=== PATIENT | male | born 1965 | race African-American/Black ===

== ENCOUNTER 2019-06-05 02:20 | Emergency (ER) | payer OTHER ==
[~2019-06-05] VITALS: Ht 177.8 cm; Wt 82.6 kg
[2019-06-05 02:21] VITALS: BP 164/92
[2019-06-05] MEDS ORDERED: GABA300C18 PO (02:59)
[2019-06-05] MEDS ORDERED: CYCL5TAB PO (02:59)
[2019-06-05] MEDS ORDERED: METH4TAB2 PO (02:59)
--- NOTE | 2019-06-05 02:59 | PHYS DOC ---
Past Medical History Past Medical History: No Pertinent History Past Surgical History: No Surgical History Alcohol Use: Heavy Drug Use: Marijuana Adult General Chief Complaint Chief Complaint: SHOULDER INJURY HPI HPI 53-year-old male presents to the emergency department with complaints of right arm numbness, tingling, burning. Patient states he's been ongoing for approximately one month he was seen by primary care physician as an outpatient diagnosed with radiculopathy. Patient was started on gabapentin, naproxen, Motrin. He states things are not working and they continue to get worse. Describes his symptoms intermittently. Tonight he states pain was worse he was unable to sleep. Patient has underlying history of degenerative cervical changes. Imaging has been completed before. Review of Systems Review of Systems Constitutional: Denies fever or chills [] Respiratory: Denies cough or shortness of breath [] Cardiovascular: No additional information not addressed in HPI [] GI: Denies abdominal pain, nausea, vomiting, bloody stools or diarrhea [] Musculoskeletal: Denies back pain or joint pain [] Neurologic: Denies headache, numbness, tingling appreciated to right upper extremity intermittent All other systems were reviewed and found to be within normal limits, except as documented in this note. Current Medications Current Medications Current Medications Medications (Trade) Dose Ordered Sig/Alexa Start Time Stop Time Status Last Admin Dose Admin Dexamethasone Sodium Phosphate (Decadron) 4 mg 1X ONCE 06/05/19 03:00 06/05/19 03:01 UNV Ketorolac Tromethamine (Toradol Im) 60 mg 1X ONCE 06/05/19 03:00 06/05/19 03:01 UNV Allergies Allergies Allergies Coded Allergies Type Severity Reaction Last Updated Verified No Known Drug Allergies 11/26/14 No Physical Exam Physical Exam Constitutional: Well developed, well nourished, no acute distress, non-toxic appearance. [] Neck: Normal range of motion, no tenderness, supple, no stridor, pain appreciated to deltoid, no neck pain at this time[] Cardiovascular:Heart rate regular rhythm, no murmur [] Lungs & Thorax: Bilateral breath sounds clear to auscultation [] Back: No tenderness, no CVA tenderness. [] Extremities: No tenderness, no cyanosis, no edema. cervical radiculopathy pain appreciated to right upper ext [] Neurologic: Alert and oriented X 3, no focal deficits noted. [] Psychologic: Affect normal, judgement normal, mood normal. [] Current Patient Data Vital Signs Vital Signs Date Time Temp Pulse Resp B/P (MAP) Pulse Ox O2 Delivery O2 Flow Rate FiO2 06/05/19 02:21 97.9 94 18 164/92 (116) 96 Room Air 97.9 EKG EKG [] Radiology/Procedures Radiology/Procedures [] Course & Med Decision Making Course & Med Decision Making Pertinent Labs and Imaging studies reviewed. (See chart for details) []53-year-old male presents to the emergency department with complaints of right arm numbness, tingling, burning. Patient states he's been ongoing for approximately one month he was seen by primary care physician as an outpatient diagnosed with radiculopathy. Patient was started on gabapentin, naproxen, Motrin. He states things are not working and they continue to get worse. Describes his symptoms intermittently. Tonight he states pain was worse he was unable to sleep. Patient has underlying history of degenerative cervical changes. Imaging has been completed before. Toradol/decadron IM. Refill of gabapentin provided. Medrol dose shantel provided. Recommend follow up with PCP, patient needs MRI or pain management referral. Discussed discharge plans and return precautions. Dragon Disclaimer Dragon Disclaimer This electronic medical record was generated, in whole or in part, using a voice recognition dictation system. Departure Departure Impression: Primary Impression: Cervical radicular pain Disposition: 01 HOME, SELF-CARE Condition: STABLE Referrals: NO PCP (PCP) Patient Instructions: Cervical Radiculopathy, [id number] Additional Instructions: Recommend follow up as soon as possible - need further MRI Return to the ER with worsening symptoms, intractable pain, fever, altered mental status Tylenol/Motrin as needed for pain Flexeril rx provided take as directed Gabapentin rx provided take as directed Medrol dose shantel provided take as directed Scripts Cyclobenzaprine Hcl (CYCLOBENZAPRINE HCL) 5 Mg Tablet 1 TAB PO TID, #30 TAB Prov: NOMAN MCQUEEN MD 06/05/19 Gabapentin (GABAPENTIN) 300 Mg Capsule 300 MG PO TID for NEUROGENIC PAIN for 30 Days, #90 CAP Prov: NOMAN MCQUEEN MD 06/05/19 Methylprednisolone (MEDROL) 4 Mg Tab.ds.pk 1 PKG PO UD, #1 PKG Prov: NOMAN MCQUEEN MD 06/05/19 NOMAN MCQUEEN MD Jun 05, 2019 02:59
[2019-06-05] MEDS ORDERED: KETOROLAC 60 MG/2 ML VIAL. IM ONE (03:15)
[2019-06-05] MEDS ORDERED: DEXAMETHASONE SOD PHOS 4 MG/ML VIAL IM ONE (03:15)
== END 2019-06-05 03:10 | disposition home or self-care (01) ==
LOC: ER 02:20
DX: M54.12 Radiculopathy, cervical region (principal); R20.2 Paresthesia of skin; F10.20 Alcohol dependence, uncomplicated; Y90.9 Presence of alcohol in blood, level not specified
CPT/HCPCS: 96372; 99284; J1100; J1885

== ENCOUNTER 2019-06-17 14:25 | Inpatient (IN) | payer OTHER ==
[~2019-06-17] VITALS: Ht 177.8 cm; Wt 83.5 kg
[2019-06-17] VITALS (8 sets, daily range): BP systolic 131–154; BP diastolic 76–83
[~2019-06-17 14:25] MED LIST: CYCL5TAB PO; GABA300C18 PO; METH4TAB2 PO
[2019-06-17] MEDS ORDERED: FAMOTIDINE 20 MG/2 ML VIAL IVP ONE (15:00)
[2019-06-17] MEDS ORDERED: diphenhydrAMINE 50 MG/ML VIAL IVP ONE (15:00)
[2019-06-17] MEDS ORDERED: methylPREDNISolone SOD SUCC PF 125 MG/2 ML VIAL. IV ONE (15:00)
[2019-06-17 15:05] LABS: BASO # 0.1 x10^3/uL (0.0-0.2); BASO % 1 % (0-3); EOS # 0.1 x10^3/uL (0.0-0.7); EOS % 1 % (0-3); HEMATOCRIT 45.1 % (39.0-53.0); HEMOGLOBIN 15.6 g/dL (13.0-17.5); LYMPH # 3.2 x10^3/uL (1.0-4.8); LYMPH % 31 % (24-48); MEAN CORPUSCULAR HEMOGLOBIN 33 pg (25-35); MEAN CORPUSCULAR HGB CONC 35 g/dL (31-37); MEAN CORPUSCULAR VOLUME 96 fL (79-100); MONO # 0.7 x10^3/uL (0.0-1.1); MONO % 7 % (0-9); NEUT # 6.2 x10^3/uL (1.8-7.7); NEUT % 60 % (31-73); PLATELET COUNT 210 x10^3/uL (140-400); RED BLOOD COUNT 4.69 x10^6/uL (4.30-5.70); RED CELL DISTRIBUTION WIDTH 14.8 % (11.5-14.5); WHITE BLOOD COUNT 10.3 x10^3/uL (4.0-11.0)
[2019-06-17 15:16] LABS: CALCIUM 9.3 mg/dL (8.5-10.1); CREATININE 0.9 mg/dL (0.7-1.3); POTASSIUM 3.7 mmol/L (3.5-5.1)
[2019-06-17 15:22] LABS: ALBUMIN 4.1 g/dL (3.4-5.0); TOTAL BILIRUBIN 0.7 mg/dL (0.2-1.0); TOTAL PROTEIN 8.1 g/dL (6.4-8.2)
--- NOTE | 2019-06-17 15:32 | PHYS DOC ---
Past Medical History Past Medical History: Hypertension Past Surgical History: No Surgical History Alcohol Use: Heavy Drug Use: Marijuana Adult General Chief Complaint Chief Complaint: FACE PROBLEM HPI HPI 53-year-old male presents to the emergency department with facial swelling. Patient states he went to his primary care physician within the last week he was changed from hydrochlorothiazide to the donation pill of hydrochlorothiazide and lisinopril. She states after starting medications he had a little bit of dif ficulty swallowing and some cough however that subsequently resolved. He states he woke up yesterday morning with some swelling to the left side of his face and that subsequently resolved. Today he states he woke up this morning with significant swelling to his upper lip and face. He denies any shortness of breath or swelling of his tongue. He is able to talk in full sentences. Review of Systems Review of Systems Constitutional: Denies fever or chills [] Eyes: Denies change in visual acuity, redness, or eye pain [] HENT: Denies nasal congestion or sore throat [] Respiratory: Denies cough or shortness of breath [] Cardiovascular: No additional information not addressed in HPI [] GI: Denies abdominal pain, nausea, vomiting, bloody stools or diarrhea [] : Denies dysuria or hematuria [] Musculoskeletal: Denies back pain or joint pain [] Integument: Denies rash or skin lesions [] Neurologic: Denies headache, focal weakness or sensory changes [] Endocrine: Denies polyuria or polydipsia [] All other systems were reviewed and found to be within normal limits, except as documented in this note. Current Medications Current Medications Current Medications Medications (Trade) Dose Ordered Sig/Alexa Start Time Stop Time Status Last Admin Dose Admin Diphenhydramine HCl (Benadryl) 50 mg 1X ONCE 06/17/19 15:00 06/17/19 15:01 DC 06/17/19 15:08 50 MG Epinephrine HCl (Adrenalin) 0.3 mg 1X ONCE 06/17/19 15:45 06/17/19 15:46 DC 06/17/19 15:52 0.3 MG Famotidine (Pepcid Vial) 20 mg 1X ONCE 06/17/19 15:00 06/17/19 15:01 DC 06/17/19 15:08 20 MG Methylprednisolone Sodium Succinate (SOLU-Medrol 125MG VIAL) 125 mg 1X ONCE 06/17/19 15:00 06/17/19 15:01 DC 06/17/19 15:08 125 MG Allergies Allergies Allergies Coded Allergies Type Severity Reaction Last Updated Verified No Known Drug Allergies 11/26/14 No Physical Exam Physical Exam Constitutional: Well developed, well nourished, no acute distress HENT: Normocephalic, atraumatic, bilateral external ears normal, oropharynx moist, + angioedema to upper lip and face, no swelling of tongue, no oral exudates, nose normal. [] Eyes: PERRLA, EOMI, conjunctiva normal, no discharge. [] Neck: Normal range of motion, no tenderness, supple, no stridor. [] Cardiovascular:Heart rate regular rhythm, no murmur [] Lungs & Thorax: Bilateral breath sounds clear to auscultation [] Abdomen: Bowel sounds normal, soft, no tenderness, no masses, no pulsatile masses. [] Skin: Warm, dry, no erythema, no rash. [] Back: No tenderness, no CVA tenderness. [] Extremities: No tenderness, no edema. [] Neurologic: Alert and oriented X 3, no focal deficits noted. [] Psychologic: Affect normal, judgement normal, mood normal. [] Current Patient Data Vital Signs Vital Signs Date Time Temp Pulse Resp B/P (MAP) Pulse Ox O2 Delivery O2 Flow Rate FiO2 06/17/19 14:41 97.8 101 16 141/95 (110) 100 Room Air 97.8 Lab Values Laboratory Tests Test 06/17/19 14:45 White Blood Count 10.3 x10^3/uL (4.0-11.0) Red Blood Count 4.69 x10^6/uL (4.30-5.70) Hemoglobin 15.6 g/dL (13.0-17.5) Hematocrit 45.1 % (39.0-53.0) Mean Corpuscular Volume 96 fL (79-100) Mean Corpuscular Hemoglobin 33 pg (25-35) Mean Corpuscular Hemoglobin Concent 35 g/dL (31-37) Red Cell Distribution Width 14.8 % (11.5-14.5) H Platelet Count 210 x10^3/uL (140-400) Neutrophils (%) (Auto) 60 % (31-73) Lymphocytes (%) (Auto) 31 % (24-48) Monocytes (%) (Auto) 7 % (0-9) Eosinophils (%) (Auto) 1 % (0-3) Basophils (%) (Auto) 1 % (0-3) Neutrophils # (Auto) 6.2 x10^3/uL (1.8-7.7) Lymphocytes # (Auto) 3.2 x10^3/uL (1.0-4.8) Monocytes # (Auto) 0.7 x10^3/uL (0.0-1.1) Eosinophils # (Auto) 0.1 x10^3/uL (0.0-0.7) Basophils # (Auto) 0.1 x10^3/uL (0.0-0.2) Sodium Level 136 mmol/L (136-145) Potassium Level 3.7 mmol/L (3.5-5.1) Chloride Level 98 mmol/L (98-107) Carbon Dioxide Level 25 mmol/L (21-32) Anion Gap 13 (6-14) Blood Urea Nitrogen 11 mg/dL (8-26) Creatinine 0.9 mg/dL (0.7-1.3) Estimated GFR (Cockcroft-Gault) 106.0 BUN/Creatinine Ratio 12 (6-20) Glucose Level 89 mg/dL (70-99) Calcium Level 9.3 mg/dL (8.5-10.1) Total Bilirubin 0.7 mg/dL (0.2-1.0) Aspartate Amino Transferase (AST) 28 U/L (15-37) Alanine Aminotransferase (ALT) 41 U/L (16-63) Alkaline Phosphatase 105 U/L (46-116) Total Protein 8.1 g/dL (6.4-8.2) Albumin 4.1 g/dL (3.4-5.0) Albumin/Globulin Ratio 1.0 (1.0-1.7) Laboratory Tests 06/17/19 14:45 Laboratory Tests 06/17/19 14:45 EKG EKG [] Radiology/Procedures Radiology/Procedures [] Course & Med Decision Making Course & Med Decision Making Pertinent Labs and Imaging studies reviewed. (See chart for details) []53-year-old male presents to the emergency department with facial swelling. Patient states he went to his primary care physician within the last week he was changed from hydrochlorothiazide to the donation pill of hydrochlorothiazide and lisinopril. She states after starting medications he had a little bit of difficulty swallowing and some cough however that subsequently resolved. He states he woke up yesterday morning with some swelling to the left side of his face and that subsequently resolved. Today he states he woke up this morning with significant swelling to his upper lip and face. He denies any shortness of breath or swelling of his tongue. He is able to talk in full sentences. Labs reviewed, no acute process Patient received solumedrol, pepcid, benadryl, and epi IM O2 saturations 100%, no laryngeal edema appreciated Discussed admission with patient and Hospitalist. Dragon Disclaimer Dragon Disclaimer This electronic medical record was generated, in whole or in part, using a voice recognition dictation system. Departure Departure Impression: Primary Impression: Angioedema Disposition: ADMITTED INPATIENT Admitting Physician: ROHIT Condition: STABLE Referrals: GARY SANTIAGO PA-C (PCP) Problem Qualifiers Primary Impression: Angioedema Encounter type: initial encounter Qualified Codes: T78.3XXA - Angioneurotic edema, initial encounter NOMAN MCQUEEN MD Jun 17, 2019 15:32
[2019-06-17] MEDS ORDERED: EPINEPHrine 1 MG/ML VIAL IM ONE (15:45)
[2019-06-17] MEDS ORDERED: ONDANSETRON PF 4 MG/2 ML VIAL. IV PRN (16:30)
--- NOTE | 2019-06-17 19:53 | HP ---
ADMIT DATE: 06/17/2019 CHIEF COMPLAINT: Swollen lips. HISTORY OF PRESENT ILLNESS: The patient is a pleasant 53-year-old male who presented with swollen lips. He apparently was on hydrochlorothiazide and his doctor changed him over to a combination of a product that includes hydrochlorothiazide and lisinopril. Sure enough now he has angioedema. I discussed the case with the ER physician. We are going to admit the patient and give him routine allergic reaction protocol including steroids, Benadryl and Pepcid. PAST MEDICAL HISTORY: Hypertension and heavy alcohol use and marijuana use. ALLERGIES: None. FAMILY HISTORY: Hypertension. SOCIAL HISTORY: I think he is . His is here. He drinks heavily and smokes marijuana. MEDICATIONS: Reviewed, please refer to the MRAD. REVIEW OF SYSTEMS: GENERAL: No history of weight change, weakness or fevers. SKIN: No bruising, hair changes or rashes. EYES: No blurred, double or loss of vision. NOSE AND THROAT: No history of nosebleeds, hoarseness or sore throat. He complains of swollen lips. HEART: No history of palpitations, chest pain or shortness of breath on exertion. LUNGS: Denies cough, hemoptysis, wheezing or shortness of breath. GASTROINTESTINAL: Denies changes in appetite, nausea, vomiting, diarrhea or constipation. GENITOURINARY: No history of frequency, urgency, hesitancy or nocturia. NEUROLOGIC: Denies history of numbness, tingling, tremor or weakness. PSYCHIATRIC: No history of panic, anxiety or depression. ENDOCRINE: No history of heat or cold intolerance, polyuria or polydipsia. EXTREMITIES: Denies muscle weakness, joint pain, pain on walking or stiffness. PHYSICAL EXAMINATION: VITALS: Within normal limits and are stable. GENERAL: No apparent distress. Alert and oriented. HEENT: Head is normocephalic, atraumatic, pupils were equally round and reactive to light and accommodation. His lips are quite swollen. NECK: Supple, no JVD, no thyromegaly was noted. LUNGS: Clear to auscultation in all lung cloud without rhonchi or wheezing. HEART: RRR, S1, S2 present. Peripheral pulses intact, no obvious murmurs were noted. ABDOMEN: Soft, nontender. Positive bowel sounds no organomegaly, normal bowel sounds. EXTREMITIES: Without any cyanosis, clubbing, or edema. Pedal pulses intact, Homans sign is negative. NEUROLOGIC: Normal speech, normal tone. A & O x 3, moves all extremities, no obvious focal deficits. PSYCHIATRIC: Normal affect, normal mood. Stable. SKIN: No ulcerations or rashes, good skin turgor, no jaundice. VASCULAR: Good capillary refill, neurovascular bundle appears to be intact. LABORATORY DATA: His electrolytes are normal and hematology is normal. ASSESSMENT AND PLAN: Angioedema secondary to SHERICE inhibitors. The patient is being admitted. We will give him routine allergic reaction protocol including steroids, Benadryl and Pepcid. ICU monitoring. DVT prophylaxis. Continue other home meds. PROGNOSIS: Guarded. CANDI TAYLOR DO DR: LONNIE/maycol JOB#: [id number] / [id number]
--- NOTE | 2019-06-17 20:00 | NUR ---
Pt arrived on unit via wheelchair accompanied by ED RN. Pt able to ambulate from wheelchair to bed without difficulty. Pt oriented to unit policies including side rail, call light, smoking, and visitors. Pt's belongings with pt in room. POC discussed with pt, Dr. Rodríguez called and orders received to restart pt's home medications. will continue to monitor
[2019-06-17] MEDS ORDERED: NAPR-514 PO (20:17)
[2019-06-17] MEDS ORDERED: AMLO10TA8 PO (20:17)
[2019-06-17] MEDS ORDERED: LABETALOL 20 MG/4 ML DISP.SYRIN. IVP PRN (22:15)
[2019-06-17] MEDS ORDERED: HYDROcodone/APAP 5/325MG 1 TAB TABLET PO PRN (22:15)
[2019-06-18] VITALS (14 sets, daily range): BP systolic 116–153; BP diastolic 72–99
[2019-06-18] MEDS: CYCLOBENZAPRINE 10 MG TABLET. PO SCH ×4 (00:08→20:19)
[2019-06-18] MEDS: GABAPENTIN 300 MG CAPSULE. PO SCH ×4 (00:08→20:18)
[2019-06-18] MEDS: NAPROXEN 500 MG TABLET PO SCH ×3 (00:09→20:19)
[2019-06-18 06:09] LABS: BASO % 0 % (0-3); EOS % 0 % (0-3); HEMATOCRIT 42.8 % (39.0-53.0); HEMOGLOBIN 14.7 g/dL (13.0-17.5); LYMPH # 0.9 x10^3/uL (1.0-4.8); LYMPH % 13 % (24-48); MEAN CORPUSCULAR HEMOGLOBIN 33 pg (25-35); MEAN CORPUSCULAR HGB CONC 34 g/dL (31-37); MEAN CORPUSCULAR VOLUME 96 fL (79-100); MONO # 0.1 x10^3/uL (0.0-1.1); MONO % 2 % (0-9); NEUT # 5.8 x10^3/uL (1.8-7.7); NEUT % 85 % (31-73); PLATELET COUNT 201 x10^3/uL (140-400); RED BLOOD COUNT 4.45 x10^6/uL (4.30-5.70); WHITE BLOOD COUNT 6.9 x10^3/uL (4.0-11.0)
[2019-06-18 06:29] LABS: CALCIUM 9.3 mg/dL (8.5-10.1); CREATININE 0.9 mg/dL (0.7-1.3); GFR 105.6; POTASSIUM 4.2 mmol/L (3.5-5.1); TOTAL BILIRUBIN 0.7 mg/dL (0.2-1.0)
[2019-06-18] MEDS: amLODIPine BESYLATE 10 MG TABLET PO SCH (08:09)
[2019-06-18] MEDS ORDERED: FLU VAX QS 2019-20 (36MOS+)/PF 0.5 ML SYRINGE. VAX IM ONE (09:00)
--- NOTE | 2019-06-18 10:30 | NUR ---
SS following for discharge planning. SS reviewed pt chart. Pt is from home and is currently on room air. SS will continue to follow for discharge planning.
--- NOTE | 2019-06-18 11:26 | PDOC ---
[facility] PROGRESS NOTE Chief Complaint Chief Complaint Angioedema secondary to SHERICE inhibitors Right hand tremor vs paraesthesia History of Present Illness History of Present Illness Pt was seen and examined in the ICU. Pt reports he is doing better today, he reports his facial is improved compared to yesterday but still present and he continues to be distressed in regards to the cosmetic appearance of his face due to the swelling. He also is concerned about a right hand tremor. Vitals/I&O Vitals/I&O: Vital Signs Date Time Temp Pulse Resp B/P (MAP) Pulse Ox O2 Delivery O2 Flow Rate FiO2 06/18/19 10:00 77 16 140/72 (94) 99 Room Air 06/18/19 08:00 98.8 98.8 I & O 06/17/19 06/17/19 06/18/19 15:00 23:00 07:00 Intake Total 700 ml Balance 700 ml Physical Exam General: Alert, Oriented X3, Cooperative Heart: Regular rate Lungs: Clear Abdomen: Normal bowel sounds, Soft Extremities: No clubbing, No cyanosis Skin: No rashes, No breakdown, Other (Diffuse facial swelling; no difficulties swallowing or breathing.) Labs Labs: Laboratory Tests Test 06/17/19 14:45 06/18/19 05:20 White Blood Count 10.3 x10^3/uL (4.0-11.0) 6.9 x10^3/uL (4.0-11.0) Red Blood Count 4.69 x10^6/uL (4.30-5.70) 4.45 x10^6/uL (4.30-5.70) Hemoglobin 15.6 g/dL (13.0-17.5) 14.7 g/dL (13.0-17.5) Hematocrit 45.1 % (39.0-53.0) 42.8 % (39.0-53.0) Mean Corpuscular Volume 96 fL (79-100) 96 fL (79-100) Mean Corpuscular Hemoglobin 33 pg (25-35) 33 pg (25-35) Mean Corpuscular Hemoglobin Concent 35 g/dL (31-37) 34 g/dL (31-37) Red Cell Distribution Width 14.8 % (11.5-14.5) 15.0 % (11.5-14.5) Platelet Count 210 x10^3/uL (140-400) 201 x10^3/uL (140-400) Neutrophils (%) (Auto) 60 % (31-73) 85 % (31-73) Lymphocytes (%) (Auto) 31 % (24-48) 13 % (24-48) Monocytes (%) (Auto) 7 % (0-9) 2 % (0-9) Eosinophils (%) (Auto) 1 % (0-3) 0 % (0-3) Basophils (%) (Auto) 1 % (0-3) 0 % (0-3) Neutrophils # (Auto) 6.2 x10^3/uL (1.8-7.7) 5.8 x10^3/uL (1.8-7.7) Lymphocytes # (Auto) 3.2 x10^3/uL (1.0-4.8) 0.9 x10^3/uL (1.0-4.8) Monocytes # (Auto) 0.7 x10^3/uL (0.0-1.1) 0.1 x10^3/uL (0.0-1.1) Eosinophils # (Auto) 0.1 x10^3/uL (0.0-0.7) 0.0 x10^3/uL (0.0-0.7) Basophils # (Auto) 0.1 x10^3/uL (0.0-0.2) 0.0 x10^3/uL (0.0-0.2) Sodium Level 136 mmol/L (136-145) 132 mmol/L (136-145) Potassium Level 3.7 mmol/L (3.5-5.1) 4.2 mmol/L (3.5-5.1) Chloride Level 98 mmol/L (98-107) 97 mmol/L (98-107) Carbon Dioxide Level 25 mmol/L (21-32) 23 mmol/L (21-32) Anion Gap 13 (6-14) 12 (6-14) Blood Urea Nitrogen 11 mg/dL (8-26) 18 mg/dL (8-26) Creatinine 0.9 mg/dL (0.7-1.3) 0.9 mg/dL (0.7-1.3) Estimated GFR (Cockcroft-Gault) 106.0 105.6 BUN/Creatinine Ratio 12 (6-20) 20 (6-20) Glucose Level 89 mg/dL (70-99) 128 mg/dL (70-99) Calcium Level 9.3 mg/dL (8.5-10.1) 9.3 mg/dL (8.5-10.1) Total Bilirubin 0.7 mg/dL (0.2-1.0) 0.7 mg/dL (0.2-1.0) Aspartate Amino Transf (AST/SGOT) 28 U/L (15-37) 21 U/L (15-37) Alanine Aminotransferase (ALT/SGPT) 41 U/L (16-63) 37 U/L (16-63) Alkaline Phosphatase 105 U/L (46-116) 99 U/L (46-116) Total Protein 8.1 g/dL (6.4-8.2) 8.0 g/dL (6.4-8.2) Albumin 4.1 g/dL (3.4-5.0) 4.0 g/dL (3.4-5.0) Albumin/Globulin Ratio 1.0 (1.0-1.7) 1.0 (1.0-1.7) Review of Systems Review of Systems: Complains of right hand tremor Complains of facial swelling Denies Chest pain Denies SOB Assessment and Plan Assessmemt and Plan Problems Medical Problems: (1) Angioedema Status: Acute Angioedema secondary to SHERICE inhibitors Right Hand Tremor vs Paraesthesia Plan: 1) Restart and continue anaphylactic medications initiated in the ER [solumedrol 60mg per IV q 12H, Diphenhydramine 50mg per IV q 12 H, and Pepcid 20mg BID] 2) Consult Neuro in regards to right hand tremor vs paresthesia 3) Transfer patient to [address] [place] [address] for additional monitoring with Plan to D/C once swelling improves further with outpatient follow-up 4) DVT prophylaxis 5) Full Code Comment Review of Relevant I have reviewed the following items tl (where applicable) has been applied. Medications: Current Medications Medications (Trade) Dose Ordered Sig/Alexa Route PRN Reason Start Time Stop Time Status Last Admin Dose Admin Diphenhydramine HCl (Benadryl) 50 mg 1X ONCE IVP 06/17/19 15:00 06/17/19 15:01 DC 06/17/19 15:08 Methylprednisolone Sodium Succinate (SOLU-Medrol 125MG VIAL) 125 mg 1X ONCE IV 06/17/19 15:00 06/17/19 15:01 DC 06/17/19 15:08 Famotidine (Pepcid Vial) 20 mg 1X ONCE IVP 06/17/19 15:00 06/17/19 15:01 DC 06/17/19 15:08 Epinephrine HCl (Adrenalin) 0.3 mg 1X ONCE IM 06/17/19 15:45 06/17/19 15:46 DC 06/17/19 15:52 Influenza Virus Vaccine Quadrival (Afluria Quad 2019-20 (3yr Up) Syringe) 0.5 ml ONCE ONCE VAX IM 06/18/19 09:00 06/18/19 09:01 DC 06/18/19 08:12 Amlodipine Besylate (Norvasc) 10 mg DAILY PO 06/18/19 09:00 06/18/19 08:09 Gabapentin (Neurontin) 300 mg TID PO 06/17/19 23:00 06/18/19 08:10 Naproxen (Naprosyn) 500 mg BID PO 06/17/19 23:00 06/18/19 08:09 Cyclobenzaprine HCl (Flexeril) 5 mg TID PO 06/17/19 23:00 06/18/19 08:10 Acetaminophen/ Hydrocodone Bitart (Lortab 5/325) 1 tab PRN Q6HRS PRN PO MODERATE PAIN 4-6 06/17/19 22:15 06/18/19 08:10 CANDI TAYLOR III DO Jun 18, 2019 11:26
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
[2019-06-18] MEDS: diphenhydrAMINE 50 MG/ML VIAL IVP SCH (20:18)
[2019-06-18] MEDS: methylPREDNISolone SOD SUCC PF 40 MG/ML VIAL. IV SCH (20:18)
[2019-06-18] MEDS: FAMOTIDINE 20 MG/2 ML VIAL IVP SCH (20:19)
[2019-06-19 03:00] VITALS: BP 137/91
[2019-06-19 07:40] VITALS: BP 156/84
[2019-06-19] MEDS: diphenhydrAMINE 50 MG/ML VIAL IVP SCH ×2 (08:20→21:00)
[2019-06-19] MEDS: CYCLOBENZAPRINE 10 MG TABLET. PO SCH ×3 (08:21→21:01)
[2019-06-19] MEDS: methylPREDNISolone SOD SUCC PF 40 MG/ML VIAL. IV SCH ×2 (08:21→21:01)
[2019-06-19] MEDS: FAMOTIDINE 20 MG/2 ML VIAL IVP SCH ×2 (08:21→21:01)
[2019-06-19] MEDS: GABAPENTIN 300 MG CAPSULE. PO SCH ×3 (08:22→21:01)
[2019-06-19] MEDS: NAPROXEN 500 MG TABLET PO SCH ×2 (08:22→21:12)
[2019-06-19] MEDS: amLODIPine BESYLATE 10 MG TABLET PO SCH (08:22)
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
[2019-06-19 10:46] VITALS: BP 152/86
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
--- NOTE | 2019-06-19 11:27 | NUR ---
[facility]IE consulted to arrange OP PT. Spoke with pt at bedside and he would like to come [facility] outpatient. [facility] phoned and faxed orders to Outpatient PT. They will contact pt for a schedule after dc. Pt agreeable with plans. Discussed with RN.
[2019-06-19] MEDS ORDERED: ENOXAPARIN 40 MG/0.4 ML SYRINGE. SQ SCH (12:00)
[2019-06-19 14:57] VITALS: BP 147/84
[2019-06-19 19:28] VITALS: BP 146/85
[2019-06-19 23:46] VITALS: BP 149/90
[2019-06-20 03:26] VITALS: BP 153/82
[2019-06-20 07:31] LABS: CALCIUM 9.1 mg/dL (8.5-10.1); CREATININE 1.1 mg/dL (0.7-1.3); GFR 83.8; POTASSIUM 3.9 mmol/L (3.5-5.1)
[2019-06-20 07:53] VITALS: BP 162/92
[2019-06-20 07:54] LABS: BILIRUBIN,URINE NEGATIVE (NEG); CLARITY,URINE CLEAR; COLOR,URINE YELLOW; NITRITE,URINE NEGATIVE (NEG); PROTEIN,URINE NEGATIVE (NEG-TRACE); UROBILINOGEN,URINE 0.2 mg/dL (0.2 mg/dL)
[2019-06-20 08:01] LABS: BACTERIA,URINE 0 /HPF (0-FEW); SQUAMOUS EPITHELIAL CELL,UR FEW /LPF; WBC,URINE OCC /HPF (0-4)
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
[2019-06-20] MEDS: amLODIPine BESYLATE 10 MG TABLET PO SCH (08:53)
[2019-06-20] MEDS: FAMOTIDINE 20 MG/2 ML VIAL IVP SCH (08:54)
[2019-06-20] MEDS: GABAPENTIN 300 MG CAPSULE. PO SCH (08:54)
[2019-06-20] MEDS: CYCLOBENZAPRINE 10 MG TABLET. PO SCH (08:54)
[2019-06-20] MEDS: NAPROXEN 500 MG TABLET PO SCH (08:54)
[2019-06-20] MEDS: methylPREDNISolone SOD SUCC PF 40 MG/ML VIAL. IV SCH (08:55)
[2019-06-20] MEDS: diphenhydrAMINE 50 MG/ML VIAL IVP SCH (08:55)
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
[2019-06-20] MEDS ORDERED: PRED50TA PO (10:11)
--- NOTE | 2019-06-20 10:11 | DISCH ---
DISCHARGE INSTRUCTIONS Condition on Discharge Condition on Discharge: Stable Activity After Discharge Activity Instructions for Disc: Activity as tolerated Lifting Instructions after Dis: No heavy lifting, No pulling or pushing Driving Instructions after Dis: Do not drive today Diet after Discharge Diet after Discharge: Cardiac Checks after Discharge Checks after discharge: Check blood press - daily Contacting the DR. after DC Call your doctor for: If your condition worsens KORY MASON MD Jun 20, 2019 10:11
[2019-06-20] MEDS ORDERED: FAMO20TA5 PO (10:13)
[2019-06-20 11:00] VITALS: BP 156/89
--- NOTE | 2019-06-20 12:15 | NUR ---
Discharge Note: ELIZA DE LA ROSA [address] Discharge instructions and discharge home medications reviewed with Patient and a copy given. All questions have been answered and understanding verbalized. The following instructions and handouts were given: follow up instructions. prescriptions for pepcid, prednisone and medication education Discontinued lines and drains: 20 guage left ac, tip intact. patient tolerated well. Patient discharged to home with self care via family.
== END 2019-06-20 13:30 | disposition home or self-care (01) | DRG 916 ==
LOC: ER 14:25 → ED HOLD 15:57 → 1 WEST ICU 19:22 → 6 SOUTH 06-18 14:06
PROVIDERS: ADMIT Internal Medicine; ATTEND Internal Medicine
DX: T78.3XXA Angioneurotic edema, initial encounter (principal); E87.1 Hypo-osmolality and hyponatremia; T46.4X5A Adverse effect of angiotensin-converting-enzyme inhibitors, initial encounter; F41.9 Anxiety disorder, unspecified; F32.9 Major depressive disorder, single episode, unspecified; I10 Essential (primary) hypertension; R13.10 Dysphagia, unspecified; F12.90 Cannabis use, unspecified, uncomplicated; G89.29 Other chronic pain; J44.9 Chronic obstructive pulmonary disease, unspecified; K21.9 Gastro-esophageal reflux disease without esophagitis; F17.210 Nicotine dependence, cigarettes, uncomplicated; M54.12 Radiculopathy, cervical region; Y92.89 Other specified places as the place of occurrence of the external cause; Z88.8 Allergy status to other drugs, medicaments and biological substances; Z82.49 Family history of ischemic heart disease and other diseases of the circulatory system
CPT/HCPCS: 36415; 80048; 80053; 81001; 85025; 90471; 90686; 96372; 96374; 96375; J0171; J1200; J1650; J2920; J2930; J3490; 99285-25; G0378

== ENCOUNTER 2019-09-28 23:26 | Emergency (ER) | payer OTHER ==
[~2019-09-28] VITALS: Ht 177.8 cm; Wt 90.0 kg
[~2019-09-28 23:26] MED LIST changes: +AMLO10TA8 PO; +FAMO20TA5 PO; +NAPR-514 PO; +PRED50TA PO
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
[2019-09-28] MEDS ORDERED: HYDROcodone/APAP 5/325MG 1 TAB TABLET PO ONE (23:45)
[2019-09-29 00:20] VITALS: BP 155/92
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
[2019-09-29] MEDS ORDERED: HYDR-3164 PO (00:47)
== END 2019-09-29 00:50 | disposition home or self-care (01) ==
LOC: ER 23:26
DX: S00.83XA Contusion of other part of head, initial encounter (principal); R51 Headache; H53.8 Other visual disturbances; I10 Essential (primary) hypertension; F12.90 Cannabis use, unspecified, uncomplicated; F10.10 Alcohol abuse, uncomplicated; Y08.89XA Assault by other specified means, initial encounter; Y93.89 Activity, other specified; Y92.89 Other specified places as the place of occurrence of the external cause; Y99.8 Other external cause status
CPT/HCPCS: 70450; 70486; 72125; 99284

== ENCOUNTER 2019-10-09 17:53 | Emergency (ER) | payer OTHER ==
[~2019-10-09] VITALS: Ht 177.8 cm; Wt 86.0 kg
[~2019-10-09 17:53] MED LIST changes: +HYDR-3164 PO
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
[2019-10-09 19:20] VITALS: BP 166/98
[2019-10-09] MEDS ORDERED: ACETAMINOPHEN 500 MG TABLET PO STA (20:02)
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
== END 2019-10-09 20:20 | disposition home or self-care (01) ==
LOC: ER 17:53
DX: S06.0X1A Concussion with loss of consciousness of 30 minutes or less, initial encounter (principal); R51 Headache; R11.0 Nausea; I10 Essential (primary) hypertension; F12.90 Cannabis use, unspecified, uncomplicated; F10.10 Alcohol abuse, uncomplicated; F17.200 Nicotine dependence, unspecified, uncomplicated; G89.29 Other chronic pain; Y08.89XA Assault by other specified means, initial encounter; Y93.89 Activity, other specified; Y92.89 Other specified places as the place of occurrence of the external cause; Y99.8 Other external cause status
CPT/HCPCS: 70450; 99284

== ENCOUNTER 2019-10-24 18:55 | Emergency (ER) | payer OTHER ==
[~2019-10-24] VITALS: Ht 177.8 cm; Wt 81.8 kg
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
[2019-10-24] MEDS ORDERED: ACETAMINOPHEN 500 MG TABLET PO ONE (20:45)
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
[2019-10-24 20:55] VITALS: BP 149/85
== END 2019-10-24 21:18 | disposition home or self-care (01) ==
LOC: ER 18:55
DX: S13.4XXA Sprain of ligaments of cervical spine, initial encounter (principal); M54.5 Low back pain; R51 Headache; I10 Essential (primary) hypertension; F10.20 Alcohol dependence, uncomplicated; Z88.8 Allergy status to other drugs, medicaments and biological substances; Y90.9 Presence of alcohol in blood, level not specified; V49.49XA Driver injured in collision with other motor vehicles in traffic accident, initial encounter; Y93.89 Activity, other specified; Y92.89 Other specified places as the place of occurrence of the external cause; Y99.8 Other external cause status
CPT/HCPCS: 70450; 72125; 72131; 99285

== ENCOUNTER 2021-12-09 20:45 | Emergency (ER) | payer OTHER ==
[~2021-12-09] VITALS: Ht 172.7 cm; Wt 80.0 kg
[~2021-12-09 20:45] MED LIST changes: +AMLO-187 PO; -AMLO10TA8 PO
[2021-12-09 21:41] LABS: BASO % 0 % (0-3); EOS % 0 % (0-3); HEMATOCRIT 36.4 % (39.0-53.0); HEMOGLOBIN 12.6 g/dL (13.0-17.5); LYMPH # 1.7 x10^3/uL (1.0-4.8); LYMPH % 16 % (24-48); MEAN CORPUSCULAR HEMOGLOBIN 35 pg (25-35); MEAN CORPUSCULAR HGB CONC 35 g/dL (31-37); MEAN CORPUSCULAR VOLUME 100 fL (79-100); MONO # 0.5 x10^3/uL (0.0-1.1); MONO % 5 % (0-9); NEUT # 8.3 x10^3/uL (1.8-7.7); NEUT % 78 % (31-73); PLATELET COUNT 128 x10^3/uL (140-400); RED BLOOD COUNT 3.63 x10^6/uL (4.30-5.70); RED CELL DISTRIBUTION WIDTH 15.5 % (11.5-14.5); WHITE BLOOD COUNT 10.6 x10^3/uL (4.0-11.0)
[2021-12-09 21:51] LABS: CALCIUM 9.2 mg/dL (8.5-10.1); CREATININE 0.8 mg/dL (0.7-1.3); GFR 120.1; POTASSIUM 3.2 mmol/L (3.5-5.1)
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
[2021-12-09 21:55] LABS: ALBUMIN 3.6 g/dL (3.4-5.0); ALBUMIN/GLOBULIN RATIO 0.7 (1.0-1.7); ETHANOL 291 mg/dL (0-10); SALIC 5.9 mg/dL (2.8-20.0); TOTAL BILIRUBIN 0.5 mg/dL (0.2-1.0); TOTAL PROTEIN 8.7 g/dL (6.4-8.2)
[2021-12-09 21:56] LABS: ACETAMIN < 2 mcg/ml (10-30)
[2021-12-09 22:08] LABS: AMPHETAMINE/METHAMPHETAMINE NEG (NEG); BARBITURATES NEG (NEG); BENZODIAZEPINES NEG (NEG); CANNABINOIDS POS (NEG); COCAINE NEG (NEG); METHADONE NEG (NEG); OPIATES NEG (NEG); PHENCYCLIDINE NEG (NEG)
[2021-12-10 00:39] VITALS: BP 156/81
== END 2021-12-10 01:29 | disposition home or self-care (01) ==
LOC: ER 20:45
DX: F32.89 Other specified depressive episodes (principal); Z20.822 Contact with and (suspected) exposure to COVID-19; F43.29 Adjustment disorder with other symptoms; I10 Essential (primary) hypertension; G89.29 Other chronic pain; F10.20 Alcohol dependence, uncomplicated; Y90.8 Blood alcohol level of 240 mg/100 ml or more; F17.200 Nicotine dependence, unspecified, uncomplicated; F43.20 Adjustment disorder, unspecified; Z88.6 Allergy status to analgesic agent
CPT/HCPCS: 36415; 80053; 80307; 80329; 85025; 87426; 99285; G0480

== ENCOUNTER 2021-12-18 17:09 | Emergency (ER) | payer OTHER ==
[~2021-12-18] VITALS: Ht 177.8 cm; Wt 70.4 kg
[2021-12-18 17:15] VITALS: BP 165/77
[2021-12-18] MEDS ORDERED: IBUPROFEN 400 MG TABLET. PO ONE (17:45)
--- NOTE | 2021-12-18 18:46 | PHYS DOC ---
Past Medical History Past Medical History: Depression, Hypertension Additional Past Medical Histor: EMPHESEMA, DDD, CHRONIC NECK AND BACK PAIN Past Surgical History: No Surgical History Smoking Status: Current Every Day Smoker Alcohol Use: Heavy Drug Use: Marijuana General Adult EDM: Chief Complaint: FINGER INJURY HPI: HPI: Patient is a 56 year old male who presents with right ring finger pain that began last night. Patient rates his pain as severe and is worse with palpation or movement. He does not remember any injury, but states he probably sustained the injury while sleeping last night. Patient is currently wearing a digit splint of his pinky finger just adjacent to where his current pain is. This was evaluated around 12/14/2021 at [facility]. Patient is concerned that his ring finger is dislocated and is seeking x-rays. Patient denies all other complaints at this time. Review of Systems: Review of Systems: ROS negative or noncontributory except as mentioned in HPI. Heart Score: C/O Chest Pain: No Current Medications: Current Medications Medications (Trade) Dose Ordered Sig/Alexa Start Time Stop Time Status Last Admin Dose Admin Ibuprofen (Motrin) 800 mg 1X ONCE 12/18/21 17:45 12/18/21 17:46 DC 12/18/21 17:47 800 MG Allergies: Allergies: Allergies Coded Allergies Type Severity Reaction Last Updated Verified lisinopril Allergy Intermediate Swelling 06/18/19 No Physical Exam: PE: Constitutional: Well developed, well nourished, no acute distress, non-toxic appearance. HENT: Normocephalic, atraumatic, bilateral external ears normal, nose normal. Eyes: EOMI, conjunctiva normal, no discharge. Neck: Normal range of motion, no stridor. Skin: Warm, dry, no erythema, no rash. Extremities: Right digits 4 and 5 tender to palpation and range of motion limited secondary to pain, capillary refill in both digits less than 2 seconds. Extremities otherwise no tenderness, no cyanosis, no clubbing, ROM intact, no edema. Neurologic: Alert and oriented x4, normal motor function, normal sensory function, no focal deficits noted. Current Patient Data: Vital Signs: Vital Signs Date Time Temp Pulse Resp B/P (MAP) Pulse Ox O2 Delivery O2 Flow Rate FiO2 12/18/21 17:15 99.4 101 18 165/77 (106) 100 Room Air 99.4 Radiology/Procedures: Radiology/Procedures: PROCEDURE: FINGER(S) RIGHT Exam: Right finger 3 views INDICATION: Fourth digit pain TECHNIQUE: Frontal view of the right hand with oblique and lateral views of the fourth digit Comparisons: None FINDINGS: Bone mineralization is normal. No acute or healed fractures. Soft tissues are unremarkable. Joint spaces are well-maintained. IMPRESSION: No acute osseous abnormality. Electronically signed by: Minerva Bazan MD (12/18/2021 7:21 PM) [facility] Course & Med Decision Making: Course & Med Decision Making Pertinent Labs and Imaging studies reviewed. (See chart for details) Patient is a 56-year-old male who presents with right ring finger pain. Patient was provided with ibuprofen p.o. Plain films are obtained. No acute fracture dislocation is appreciated. Patient is advised to alternate between Tylenol and ibuprofen for pain. Return precautions provided. Patient understands and is agreeable to discharge plan. Dragon Disclaimer: Dragon Disclaimer: This electronic medical record was generated, in whole or in part, using a voice recognition dictation system. Departure Departure Impression: Primary Impression: Pain in finger of right hand Disposition: 01 HOME / SELF CARE / HOMELESS Condition: STABLE Referrals: NON,STAFF (PCP) Patient Instructions: Finger Sprain, [id number], RICE - Routine Care for Injuries, [id number] Additional Instructions: EMERGENCY DEPARTMENT GENERAL DISCHARGE INSTRUCTIONS Thank you for coming to [facility] Emergency Department (ED) today and trusting us with you care. We trust that you had a positive experience in our Emergency Department. If you wish to speak to the department management, you may call the director at . YOUR FOLLOW UP INSTRUCTIONS ARE FOLLOWS: 1. Follow up with your primary care doctor. If you do not have a primary doctor, please ask for a resource list of physicians or clinics that may be able to assist you with follow up care. 2. The emergency provider has interpreted your imaging studies, if any were ordered. The radiology customer acquisition specialist also reviewed them. If there is a change in the findings, you will be notified in 48 hours when at all possible. 3. If a lab test or culture has been done, your results will be reviewed and you will be notified if you need a change in treatment. 4. Follow instructions verbalized to you and refer to the printouts if needed. ADDITIONAL INSTRUCTIONS AND INFORMATION: 1. Your care today has been supervised by a physician who is specially trained in emergency care. Many problems require more than one evaluation for a complete diagnosis and treatment. We recommend that you schedule your follow up appointment as recommended to ensure complete treatment of you illness or injury. If you are unable to obtain follow up care and continue to have a problem, or if your condition worsens, we recommend that you return to the ED. 2. We are not able to safely determine your condition over the phone nor are we able to give sound medical advice over the phone. For these safety reasons, if you call for medical advice we will ask you to come to the ED for further evaluation. 3. If you have any questions regarding these discharge instructions please call the ED at . SAFETY INFORMATION: In the interest of safety, wellness, and injury prevention; we encourage you to wear your seat belt, if you smoke; quite smoking, and we encourage family to use a protective helmet for bicycling and other sporting events that present an increased risk for head injury. IF YOUR SYMPTOMS WORSEN OR NEW SYMPTOMS DEVELOP, OR YOU HAVE CONCERNS ABOUT YOUR CONDITION; OR IF YOUR CONDITION WORSENS WHILE YOU ARE WAITING FOR YOUR FOLLOW UP APPOINTMENT; EITHER CONTACT YOUR PRIMARY CARE DOCTOR, THE PHYSICIAN WHOSE NAME AND NUMBER YOU WERE GIVEN, OR RETURN TO THE ED IMMEDIATELY. FLOR COPELAND Dec 18, 2021 18:46
--- NOTE | 2021-12-18 19:24 | RAD ---
Exam: Right finger 3 views INDICATION: Fourth digit pain TECHNIQUE: Frontal view of the right hand with oblique and lateral views of the fourth digit Comparisons: None FINDINGS: Bone mineralization is normal. No acute or healed fractures. Soft tissues are unremarkable. Joint spa carlene are well-maintained. IMPRESSION: No acute osseous abnormality. Electronically signed by: Minerva Bazan MD (12/18/2021 7:21 PM) [facility]
== END 2021-12-18 19:40 | disposition home or self-care (01) ==
LOC: ER 17:09
DX: M79.644 Pain in right finger(s) (principal); Z88.6 Allergy status to analgesic agent; I10 Essential (primary) hypertension; F17.200 Nicotine dependence, unspecified, uncomplicated; F10.20 Alcohol dependence, uncomplicated; Y90.9 Presence of alcohol in blood, level not specified
CPT/HCPCS: 73140; 99283